=== PATIENT | female | born 1975 | race African-American/Black ===

== ENCOUNTER 2017-11-30 21:53 | Emergency (ER) | payer MEDICAID ==
[~2017-11-30 21:53] MED LIST: CYCL-36 PO; IBUP800 PO
[2017-11-30 23:37] VITALS: BP 151/74; PULSE 75; RESP 16; TEMP 97.6; O2SAT 100
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
[2017-12-01] MEDS ORDERED: AMOX875T PO (02:52)
[2017-12-01] MEDS ORDERED: IBUP1TAB7 PO (02:52)
== END 2017-12-01 03:40 | disposition home or self-care (01) ==
LOC: NEPD 21:53
DX: S02.2XXA Fracture of nasal bones, initial encounter for closed fracture (principal); Y04.8XXA Assault by other bodily force, initial encounter; R51 Headache; M54.2 Cervicalgia; M54.5 Low back pain; M79.671 Pain in right foot; J45.909 Unspecified asthma, uncomplicated
CPT/HCPCS: 70450; 70486; 72100; 72125; 73630; 84703; 99284

== ENCOUNTER 2017-12-15 16:27 | Emergency (ER) | payer MEDICAID ==
[~2017-12-15] VITALS: Ht 172.7 cm; Wt 89.0 kg
[~2017-12-15 16:27] MED LIST changes: +AMOX875T PO; +IBUP1TAB7 PO
[2017-12-15 16:47] VITALS: BP 144/67; PULSE 94; RESP 18; TEMP 98.3; O2SAT 99
[2017-12-15] MEDS ORDERED: SODIUM CHLOR 0.9% 1000 ML INJ 1,000 ML IV SCH (20:40)
[2017-12-15] MEDS ORDERED: DICYCLOMINE HCL 20 MG/2 ML VIAL IM ONE (20:45)
[2017-12-15] MEDS ORDERED: SODIUM CHLORIDE 0.9% FLUSH 10 ML FLUSH IV FLUSH PRN (20:45)
[2017-12-15] MEDS ORDERED: ONDANSETRON HCL 4 MG/2 ML VIAL IVP ONE (20:45)
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
[2017-12-15 21:33] LABS: AUTOMATED NEUTROPHIL # 2.7 TH/MM3 (1.8-7.7); BASOPHIL % 0.6 % (0.0-2.0); EOSINOPHIL # 0.5 TH/MM3 (0-0.4); EOSINOPHIL % 9.5 % (0.0-4.0); HEMATOCRIT 38.7 % (35.0-46.0); HEMOGLOBIN 12.6 GM/DL (11.6-15.3); LYMPH % 23.5 % (9.0-44.0); LYMPHOCYTE # 1.2 TH/MM3 (1.0-4.8); MEAN CELL VOLUME 83.9 FL (80.0-100.0); MEAN CORPUSCULAR HEMOGLOBIN 27.4 PG (27.0-34.0); MEAN CORPUSCULAR HGB CONC 32.7 % (32.0-36.0); MEAN PLATELET VOLUME 8.3 FL (7.0-11.0); MONO % 12.6 % (0.0-8.0); MONOCYTE # 0.6 TH/MM3 (0-0.9); NEUT % 53.8 % (16.0-70.0); PLATELET COUNT 246 TH/MM3 (150-450); RED BLOOD COUNT 4.61 MIL/MM3 (4.00-5.30); RED CELL DISTRIBUTION WIDTH 15.7 % (11.6-17.2)
[2017-12-15 21:44] LABS: BACTERIA, URINE OCC /hpf; BILIRUBIN, URINE NEG (NEG); BLOOD, URINE NEG (NEG); GLUCOSE,URINE NEG (NEG); KETONE, URINE NEG (NEG); MUCUS URINE FEW /lpf (OCC); NITRITE,URINE NEG (NEG); PH, URINE 5.5 (5.0-8.5); SQUAMOUS EPITHELIAL CELL URINE 3 /hpf (0-5); URINE COLOR LIGHT-YELLOW (YELLW/STRAW); URINE LEUKOCYTE ESTERASE SMALL (NEG)
[2017-12-15 21:58] LABS: ALBUMIN 3.8 GM/DL (3.4-5.0); ALT (GPT) 19 U/L (10-53); AST (GOT) 27 U/L (15-37); BICARBONATE 25.5 MEQ/L (21.0-32.0); BLOOD UREA NITROGEN 7 MG/DL (7-18); CALCIUM 8.4 MG/DL (8.5-10.1); CHLORIDE 104 MEQ/L (98-107); CREATININE 0.95 MG/DL (0.50-1.00); GLOMERULAR FILTRATION RATE 79 ML/MIN (>89); GLUCOSE,RANDOM 86 MG/DL (74-106); SODIUM (NA) 137 MEQ/L (136-145)
[2017-12-15 22:01] LABS: ALKALINE PHOSPHATASE 57 U/L (45-117); TOTAL BILIRUBIN ADULT 0.5 MG/DL (0.2-1.0); TOTAL PROTEIN 8.3 GM/DL (6.4-8.2)
[2017-12-15] MEDS ORDERED: IOHEXOL 350 MG/ML 10 ML VIAL (for RAD DIAG) IVCONTRAST ONE (22:21)
--- NOTE | 2017-12-15 22:46 | RADRPT ---
EXAM DATE/TIME: 12/15/2017 22:05 [facility] COMPARISON: No previous studies available for comparison. INDICATIONS : Abdominal pain. IV CONTRAST: 100 cc Omnipaque 350 (iohexol) IV ORAL CONTRAST: No oral contrast ingested. RADIATION DOSE: 7.37 CTDIvol (mGy) MEDICAL HISTORY : None SURGICAL HISTORY : Tubal ligation. ENCOUNTER: Initial ACUITY: 1 day PAIN SCALE: 8/10 LOCATION: abdomen TECHNIQUE: Volumetric scanning of the abdomen and pelvis was performed. Using automated exposure control and ad justment of the mA and/or kV according to patient size, radiation dose was kept as low as reasonably achievable to obtain optimal diagnostic quality images. DICOM format image data is available electro nically for review and comparison. FINDINGS: Minimal linear scarring at the lung bases. No pleural cardial effusion. There is a 1.7 cm cyst inferior right lobe liver. There is some fat infiltration around the lateral s egment left lobe liver. Adrenals, kidneys and pancreas demonstrate no acute findings. Spleen unremark able. No calcified gallstones. No significant free fluid. Small bilateral ovarian cysts. CONCLUSION: 1. No acute findings. Small bilateral ovarian cysts. Small cyst liver. No obstruction or free air. Chris Avelar MD on December 15, 2017 at 22:40 Board Certified Radiologist. This report was verified electronically.
== END 2017-12-16 00:18 | disposition home or self-care (01) ==
LOC: NEPC 16:27
DX: R10.33 Periumbilical pain (principal); R11.2 Nausea with vomiting, unspecified; J45.909 Unspecified asthma, uncomplicated
CPT/HCPCS: 74177; 80053; 81001; 83690; 84703; 85025; 96372; 96374; 99284; J0500; J2405; J7030; Q9967